=== PATIENT | female | born 1960 | race Asian ===

== ENCOUNTER 2016-05-06 11:37 | Emergency (ER) | payer OTHER ==
[~2016-05-06] VITALS: Ht 160 cm; Wt 56.7 kg
[2016-05-06 11:38] VITALS: BP 137/81
[2016-05-06] MEDS ORDERED: ASPI81TA85 PO (11:51)
[2016-05-06] MEDS ORDERED: AMLO25TA PO (11:51)
[2016-05-06] MEDS ORDERED: CIPROFLOXACIN 0.3% OPHTH SOLN 2.5ML OU ONE (12:30)
[2016-05-06] MEDS ORDERED: AUGMENTIN 875 MG TAB PO ONE (12:30)
[2016-05-06] MEDS ORDERED: AUGM875T27 PO (12:35)
[2016-05-06] MEDS ORDERED: CIPR0.3S OU (12:35)
== END 2016-05-06 12:46 | disposition home or self-care (01) ==
LOC: M ED 12:12
DX: H10.33 Unspecified acute conjunctivitis, bilateral (principal); L03.213 Periorbital cellulitis; I10 Essential (primary) hypertension; Z79.82 Long term (current) use of aspirin

== ENCOUNTER → 2016-08-27 | Outpatient (CLI) | payer OTHER ==
[~2016-08-27] VITALS: Ht 160 cm; Wt 49.9 kg
[~2016-08-27] MED LIST: AMLO25TA PO; AMLO5TAB2 PO; ASPI81TA85 PO; AUGM875T28 PO; CIPR0.3S OU; LIDOCAINE 2% INJ 100 MG/5 ML SDV (FOR ANES.) As Ordered ONE; NAPR500T3 PO; NS 1,000 ML IV ONE; PROPOFOL 200 MG/20 ML VIAL As Ordered ONE
--- NOTE | 2016-08-27 09:54 | ROOR ---
Patient Name: Mona Negrete Procedure Date: 08/27/2016 9:24 AM Date of : 1960 Age: 56 Room: [facility] Gender: Female Note Status: Finalized Procedure: Total Colonoscopy to Cecum + Bx. To r/o Microscopic Colitis Indications: Clinically significant diarrhea of unexplained origin Providers: Titus Ham MD Referring MD: ETHEL DAVENPORT MD Requesting Provider: Medicines: Monitored Anesthesia Care Complications: No immediate complications. Procedure: Pre-Anesthesia Assessment: - The heart rate, respiratory rate, oxygen saturations, blood pressure, adequacy of pulmonary ventilation, and response to care were monitored throughout the procedure. The Colonoscope was introduced through the anus and advanced to the cecum, identified by appendiceal orifice and ileocecal valve. The colonoscopy was performed without difficulty. The patient tolerated the procedure well. The quality of the bowel preparation was excellent. Findings: The perianal and digital rectal examinations were normal. Non-bleeding internal hemorrhoids were found during retroflexion. The hemorrhoids were small and Grade I (internal hemorrhoids that do not prolapse). No other significant abnormalities were identified in a careful examination of the remainder of the colon. Biopsies for histology were taken with a cold forceps from the ascending colon, transverse colon and descending colon for evaluation of microscopic colitis. The exam was otherwise without abnormality on direct and retroflexion views. Impression: - Non-bleeding internal hemorrhoids. - The examination was otherwise normal on direct and retroflexion views. - Biopsies were taken with a cold forceps from the ascending colon, transverse colon and descending colon for evaluation of microscopic colitis. - The exam was otherwise normal to the cecum. Recommendation: - Patient has a contact number available for emergencies. The signs and symptoms of potential delayed complications were discussed with the patient. Return to normal activities tomorrow. Written discharge instructions were provided to the patient. - High fiber diet. - Discharge patient to home. - Continue present medications. - Await pathology results. - Telephone GI clinic for pathology results in 1 week. - Repeat colonoscopy in 10 years for screening purposes. - Return to referring physician. - The findings and recommendations were discussed with the patient's family. - Check Portal Online for Path Results.([email or web address] - The findings and recommendations were discussed with the patient's family. Titus Ham MD Titus Ham MD 08/27/2016 9:53:46 AM This report has been signed electronically. Number of Addenda: 0 Note Initiated On: 08/27/2016 9:24 AM Estimated Blood Loss: Estimated blood loss: none.
--- NOTE | 2016-08-27 09:59 | ROOR ---
Patient Name: Mona Negrete Procedure Date: 08/27/2016 9:23 AM Date of : 1960 Age: 56 Room: [facility] Gender: Female Note Status: Finalized Procedure: Upper GI endoscopy + Small bowel bx.+ Biopsies for Helicobacter Pylori Indications: Diarrhea, Family history of gastric cancer Providers: Titus Ham MD Referring MD: ETHEL DAVENPORT MD Requesting Provider: Medicines: Monitored Anesthesia Care Complications: No immediate complications. Procedure: Pre-Anesthesia Assessment: - The heart rate, respiratory rate, oxygen saturations, blood pressure, adequacy of pulmonary ventilation, and response to care were monitored throughout the procedure. The Endoscope was introduced through the mouth, and advanced to the second part of duodenum. The upper GI endoscopy was accomplished without difficulty. The patient tolerated the procedure well. Findings: The Z-line was regular and was found 40 cm from the incisors. No other significant abnormalities were identified in a careful examination of the stomach. The exam of the duodenum was otherwise normal. Biopsies for histology were taken with a cold forceps in the first portion of the duodenum for evaluation of celiac disease. The exam was otherwise without abnormality. Diffuse mild inflammation characterized by erosions, erythema and aphthous ulcerations was found on the greater curvature of the stomach. Impression: - Z-line regular, 40 cm from the incisors. - The examination was otherwise normal. - Acute gastritis. - Biopsies were taken with a cold forceps for evaluation of celiac disease. - The examination was otherwise normal. Recommendation: - Patient has a contact number available for emergencies. The signs and symptoms of potential delayed complications were discussed with the patient. Return to normal activities tomorrow. Written discharge instructions were provided to the patient. - High fiber diet. - Discharge patient to home. - Continue present medications. - Await pathology results. - Telephone GI clinic for pathology results in 1 week. - Return to referring physician. - The findings and recommendations were discussed with the patient's family. Titus Ham MD Titus Ham MD 08/27/2016 9:58:31 AM This report has been signed electronically. Number of Addenda: 0 Note Initiated On: 08/27/2016 9:23 AM Estimated Blood Loss: Estimated blood loss: none.
[2016-08-27 10:23] VITALS: BP 112/80
== END ==
LOC: M OPP 08:05
PROVIDERS: ATTEND Internal Medicine Gastroenterology
DX: R19.7 Diarrhea, unspecified (principal); K64.0 First degree hemorrhoids; Z80.0 Family history of malignant neoplasm of digestive organs; K29.00 Acute gastritis without bleeding; R12 Heartburn; I10 Essential (primary) hypertension; Z79.82 Long term (current) use of aspirin; Z79.899 Other long term (current) drug therapy

== ENCOUNTER → 2016-09-03 | Outpatient (CLI) | payer OTHER ==
[~2016-09-03] MED LIST changes: -LIDOCAINE 2% INJ 100 MG/5 ML SDV (FOR ANES.) As Ordered ONE; -NS 1,000 ML IV ONE; -PROPOFOL 200 MG/20 ML VIAL As Ordered ONE
--- NOTE | 2016-09-03 09:56 | REPMRS ---
Patient History The patient states she has not had a clinical breast exam in over a year. Family history of stomach cancer in mother. Implants in both breasts. Digital Mammo Screening Bilat: September 03, 2016 - Exam #: [id number] Bilateral CC and MLO view(s) were taken. Technologist: Chantel Kapadia, Technologist Prior study comparison: September 05, 2015, bilateral digital mammo screening bilat performed at [facility]. August 30, 2014, bilateral digital mammo screening bilat performed at [facility]. FINDINGS: The breast tissue is heterogeneously dense. This may lower the sensitivity of mammography. There is a fairly symmetric fibroglandular pattern in both breasts. There has been no interval development of masses, areas of architectural distortion or clusters of microcalcifications typical of malignancy. Bilateral breast implants appear intact. No significant changes when compared with prior studies. ASSESSMENT: BI-RADS/ACR category 2 mammogram. Benign finding(s). Recommendation Routine screening mammogram of both breasts in 1 year (for women over age 40). This mammogram was interpreted with the aid of an FDA-approved computer-aided dectection system. Electronically Signed By: Edmundo Billy MD 09/03/16 0955
== END ==
LOC: M RAD 09:03
PROVIDERS: ATTEND Physician Assistant
DX: Z12.31 Encounter for screening mammogram for malignant neoplasm of breast (principal); Z98.82 Breast implant status

== ENCOUNTER → 2017-09-09 | Outpatient (CLI) | payer OTHER | LOC: M RAD 07:57 | DX: Z12.31 Encounter for screening mammogram for malignant neoplasm of breast (principal) | CPT/HCPCS: 77067 ==

== ENCOUNTER → 2018-04-06 | Outpatient (CLI) | payer OTHER ==
[~2018-04-06] MED LIST changes: -AMLO5TAB2 PO; +AMLO5TAB6 PO; +NAPR-885 PO; -NAPR500T3 PO
--- NOTE | 2018-04-07 09:54 | DEXA ---
AP SPINE L1 - L4 0.970 -1.8 -0.9 LT FEMUR TOTAL 0.735 -2.2 1.5 LT NECK RT FEMUR TOTAL 0.750 -2.0 -1.4 RT NECK TOTAL BODY TOTAL OTHER COMMENTS: There is low bone density of the spine and hips. FOLLOW-UP: Recommendation for the next bone density exam: 2 years. JAMESON
== END ==
LOC: M WHC 11:38
PROVIDERS: ATTEND Physician Assistant
DX: M85.89 Other specified disorders of bone density and structure, multiple sites (principal); E55.9 Vitamin D deficiency, unspecified

== ENCOUNTER → 2018-04-26 | Outpatient (CLI) | payer OTHER ==
--- NOTE | 2018-05-17 14:06 | REP ---
DIAGNOSTIC MAMMOGRAM, LEFT BREAST WITH LEFT BREAST ULTRASOUND: Left breast mammogram is performed in the MLO and CC projections with routine views as well as implant displaced views. There is a left breast implant in place. The patient had recent MRI of the left shoulder which showed prominent axillary lymph node. This was performed 04/08/2018. The breast implant is grossly intact. There is moderately dense fibroglandular tissue in the left breast which appears unchanged compared to multiple prior exams, most recently 09/09/2017. No new mass is seen. No clustered microcalcifications are seen. No abnormality is seen in the visualized left axillary region mammographically. Real-time sonographic evaluation of the left axillary region performed. A lymph node demonstrates a fatty hilum with normal appearing morphology, measuring 2.0 x 0.7 x 0.7 cm. Short axis dimension is within normal limits. IMPRESSION: ACR 2 benign. Moderately dense breast parenchyma. No mass or clustered microcalcifications. By ultrasound in the left axilla, there is a lymph node which appears morphologically within normal limits with a short axis dimension of 7 mm. There is fatty hilum. This does not appear to be suspicious. The patient is due for a bilateral mammogram August 2018. This mammogram was interpreted with the aid of an FDA-approved computer-aided detection system. The patient states that she or he has not had a clinical breast exam in over a year. Patient letter M2. Lupe lifetime risk of breast cancer 8.1%. Electronically Signed by Edmundo Billy MD 05/17/2018 02:49 P
== END ==
LOC: M RAD 13:50
PROVIDERS: ATTEND Internal Medicine
DX: R59.0 Localized enlarged lymph nodes (principal); R92.2 Inconclusive mammogram

== ENCOUNTER → 2018-09-10 | Outpatient (CLI) | payer OTHER ==
--- NOTE | 2018-09-10 11:35 | REPMRS ---
Patient History The patient states she had a clinical breast exam in Feb, 2018. Family history of unknown cancer in mother. Implants in both breasts. Digital Mammo Screening Bilat: September 10, 2018 - Exam #: [id number] Bilateral CC and MLO view(s) were taken. Technologist: Donya Cardenas, Technologist Prior study comparison: April 26, 2018, left breast digital mammo diagnostic unilateral performed at [facility]. September 09, 2017, bilateral digital mammo screening bilat performed at [facility]. August 05, 2011, bilateral digital mammo screening bilat performed at [facility]. July 30, 2010, bilateral digital mammo screening bilat performed at [facility]. FINDINGS: The breast tissue is heterogeneously dense. This may lower the sensitivity of mammography. The visualized implant margins are smooth. Breast parenchymal density pattern is essentially symmetric. No dominant mass, grouped microcalcification, or architectural distortion is evident on either side. 3-D tomosynthesis shows no additional findings. No significant changes when compared with prior studies. Assessment: BI-RADS/ACR category 2 mammogram. Benign Findings. Recommendation Routine screening mammogram of both breasts in 1 year (for women over age 40). This patient's Lifetime Breast Cancer RIsk is estimated at 8.0 %. This mammogram was interpreted with the aid of an FDA-approved computer-aided dectection system. Electronically Signed By: Nader Contreras MD 09/10/18 [id number]
== END ==
LOC: M RAD 09:37
PROVIDERS: ATTEND Family Medicine
DX: Z12.31 Encounter for screening mammogram for malignant neoplasm of breast (principal); Z80.9 Family history of malignant neoplasm, unspecified; Z98.82 Breast implant status

== ENCOUNTER → 2019-12-08 | Outpatient (CLI) | payer OTHER ==
[~2019-12-08] MED LIST changes: +AMLO1TAB24 PO; -AMLO5TAB6 PO; -ASPI81TA85 PO; +ASPI81TA86 PO; -CIPR0.3S OU; +CIPR0.3S6 OU
--- NOTE | 2019-12-09 08:05 | REPMRS ---
Patient History Family history of unknown cancer in mother. Implants in both breasts. Digital Woman Screen Mammo: December 08, 2019 - Exam #: [id number] Bilateral CC and MLO view(s) were taken. Technologist: Chantel Kapadia, Technologist Prior study comparison: September 10, 2018, bilateral digital mammo screening bilat, performed at [facility]. September 09, 2017, bilateral digital mammo screening bilat, performed at [facility]. August 05, 2011, bilateral digital mammo screening bilat, performed at [facility]. FINDINGS: The breast tissue is extremely dense which could obscure a lesion on mammography. The visualized implant margins are smooth. Breast parenchymal density pattern is essentially symmetric. No dominant mass, grouped microcalcification, or architectural distortion is evident on either side. 3-D tomosynthesis shows no additional findings. No significant changes when compared with prior studies. Assessment: BI-RADS/ACR category 2 mammogram. Benign Findings. Recommendation Routine screening mammogram of both breasts in 1 year (for women over age 40). This patient's Lifetime Breast Cancer RIsk is estimated at 7.8 %. This mammogram was interpreted with the aid of an FDA-approved computer-aided dectection system. Electronically Signed By: Nader Contreras MD 12/09/19 0804
== END ==
LOC: M WHC 13:52
PROVIDERS: ATTEND Nurse Practitioner Primary Care
DX: Z12.31 Encounter for screening mammogram for malignant neoplasm of breast (principal); Z80.9 Family history of malignant neoplasm, unspecified; Z98.82 Breast implant status

== ENCOUNTER 2020-04-04 06:55 | Day surgery (SDC) | payer OTHER ==
[~2020-04-04] VITALS: Ht 134.6 cm; Wt 50.8 kg
[~2020-04-04 06:55] MED LIST changes: +ASPI81CH33 PO; +DUPI300I SC
[2020-04-04] MEDS ORDERED: NS 1,000 ML IV ONE (07:00)
--- OUTSIDE RECORDS SUMMARY | 2020-04-04 07:01 | CCD | Continuity of Care Document ---
Author Author Mona HAM M.D. Organization Unknown Address [address] [place] [id number] Phone [phone] Care Team Providers Care Yarn Weight And Strength Tester Name Role Phone Iron Conrad MD AUTRahul Unavailable Problems Active Problems Provider Date Gastroesophageal reflux disease Titus Ham M.D. Ons et: 01/26/2020 Screening for malignant neoplasm of colon Titus reynoso M.D. Onset: 07/29/2016 Social History Type Date Description Comments Sex Unknown ETOH Use Denies alcohol use Tobacco Use Start: Unknown Patient has never smoked Allergies, Adverse Reactions, Alerts Description No Known Drug Allergies Medications Active Medications SIG Qnty Indications Ordering Provide r Date Suprep Bowel Prep Kit 17.5-3.13-1.6GM/177ML Solution use as directed 354ml Titus Ham M.D. 01/26/[address] Unknown Amlodipine Besylate 5mg Tablets Unknown Prempro 0.3-1.5mg Tablets Lisa Mayers M.D. Triamcinolone Acetonide 0.1% Ointm ent as directed Unknown Butalbital/Acetaminophen/Caffeine 50-325-40mg Tablets Unknown Vitamin B-2 100mg Tablets Unknown Dupixent 300mg/2ML Soln Prefill Syringe Crys Wayne Calcium 500 + D [id number] Tablets Unknown Multiple Vitamin Tablets Unknown Collagen Ultra Capsules Unknown Immunizations Description No Information Available Vital Signs Date Vital Result Comment 01/26/2020 1:46pm Height 64 inches 5'4" Weight 114.00 lb BP Systolic 112 mmHg BP Diastolic 73 mmHg Heart Rate 81 /min BMI (Body Mass Index) 19.6 kg/m2 Weight 51.710 kg Body Temperature 97.3 F 07/29/2016 1:53pm Height 54 inches 4'6" Weight 109.00 lb BP Systolic 122 mmHg BP Diastolic 83 mmHg Heart Rate 63 /min BMI (Body Mass Index) 26.3 kg/m2 Weight 49.442 kg Results Description No Information Available Procedures Description No Information Available Medical Devices Description No Information Available Encounters Type Date Location Provider Dx Diagnosis Office Visit 01/26/2020 1:30p Main Office Titus Ham M.D. K 59.1 Functional diarrhea Z80.0 Family history of malignant neoplasm of digestive organs Assessments Date Code Description Provider 01/26/2020 K59.1 Functional diarrhea Titus arias M.D. 01/26/2020 Z80.0 Family history of malignant neop lasm of gastrointestinal tract Titus Ham M.D. Plan of Treatment Future Appointment(s):* 04/04/2020 8:00 am - Titus Ham M.D. at Main Office 01/26/2020 - Titus Ham M.D.* K59.1 Functional diarrhea* Comments:* 59 yo wf who presents for a screening colonoscopy + egd for a h/o heartburn. No c/o abdominal pain, weight loss, change in bowel habits, or rectal bleeding. N o family h/o colon cancer. No h/o chest pain, or sob. She also has a chronic h/o heartburn. Plan:1. Colonoscopy + egd.2. Informed consent. * Z80.0 Family history of malignant neoplasm of gastrointestinal tract* Comments:* Plan :1.Setup colonoscopy.2. Informed consent given. Functional Status Description No Information Available Mental Status Description No Information Available Referrals Refer to Reason for Referral Status Appt Date Titus Ham M.D. Scheduled [phone] [place] [address] [phone]
--- OUTSIDE RECORDS SUMMARY | 2020-04-04 07:01 | CCD ---
Author Author [facility] Organization [facility] Address Unknown Phone Unavailable Care Team Providers Care Pharmacy Technician Name Role Phone Andie Ham MD Unavailable Unavailable Andie Ham MD Unavailable Unavailable Andie Ham MD Unavailable Unavailable Andie Ham MD Unavailable Unavailable Andie Ham MD Unavailable Unavailable Andie Ham MD Unavailable Unavailable Andie Ham MD Unavailable Unavailable Andie Ham MD Unavailable Unavailable Andie Ham MD Unavailable Unavailable Andie Ham MD Unavailable Unavailable Andie Ham MD Unavailable Unavailable Andie Ham MD Unavailable Unavailable Andie Ham MD Unavailable Unavailable Andie Ham MD Unavailable Unavailable Andie Ham MD Unavailable Unavailable Andie Ham MD Unavailable Unavailable Andie Ham MD Unavailable Unavailable Andie Ham MD Unavailable Unavailable Andie Ham MD Unavailable Unavailable Andie Ham MD Unavailable Unavailable Andie Ham MD Unavailable Unavailable Andie Ham MD Unavailable Unavailable Andie Ham MD Unavailable Unavailable Andie Ham MD Unavailable Unavailable Andie Ham MD Unavailable Unavailable Andie Ham MD Unavailable Unavailable Andie Ham MD Unavailable Unavailable Andie Ham MD Unavailable Unavailable Andie Ham MD Unavailable Unavailable Andie Ham MD Unavailable Unavailable Andie Ham MD Unavailable Unavailable Andie Ham MD Unavailable Unavailable Andie Ham MD Unavailable Unavailable Jitendra, S Titus MD Unavailable Unavailable Jitendra, S Titus MD Unavailable Unavailable Jitendra, S Titus MD Unavailable Unavailable Jitendra, S Titus MD Unavailable Unavailable Jitendra, S Titus MD Unavailable Unavailable Jitendra, S Titus MD Unavailable Unavailable Jitendra, S Titus MD Unavailable Unavailable Jitendra, S Titus MD Unavailable Unavailable Jitendra, S Titus MD Unavailable Unavailable Jitendra, S Titus MD Unavailable Unavailable Jitendra, S Titus MD Unavailable Unavailable Jitendra, S Titus MD Unavailable Unavailable Jitendra, S Titus MD Unavailable Unavailable Jitendra, S Titus MD Unavailable Unavailable Jitendra, S Titus MD Unavailable Unavailable Jitendra, S Titus MD Unavailable Unavailable Re-disclosure Warning The records that you are about to access may contain information from federally-assisted alcohol or drug abuse programs. If such information is present, then the following federally mandated warning applies: This information has been disclosed to you from records protected by federal confidentiality rules (42 CFR part 2). The federal rules prohibit you from making any further disclosure of this information unless further disclosure is expressly permitted by the written consent of the person to whom it pertains or as otherwise permitted by 42 CFR part 2. A general authorization for the release of medical or other information is NOT sufficient for this purpose. The Federal rules restrict any use of the information to criminally investigate or prosecute any alcohol or drug abuse patient.The records that you are about to access may contain highly sensitive health information, the redisclosure of which is protected by Article 27-F of the [facility] Public Health law. If you continue you may have access to information: Regarding HIV / AIDS; Provided by facilities licensed or operated by the [facility] Office of Mental Health; or Provided by the [facility] Office for People With Developmental Disabilities. If such information is present, then the following [facility] mandated warning applies: This information has been disclosed to you from confidential records which are protected by state law. State law prohibits you from making any further disclosure of this information without the specific written consent of the person to whom it pertains, or as otherwise permitted by law. Any unauthorized further disclosure in violation of state law may result in a fine or chcf sentence or both. A general authorization for the release of medical or other information is NOT sufficient authorization for further disc losure. Family History Family Member Name Family Member Gender Family Member Status Date o f Status Description Data Source(s) Unknown Female Problem [facility] ([facility]) Unknown Male Problem [facility] ([facility]) Unknown Unknown Problem [facility] ([facility]) GASTRIC Unknown Female Problem [facility] ([facility]) Encounters Encounter Providers Location Date Indications Data Source(s ) Outpatient Attender: Titus Ham MD Main Office 01/26/2020 12:30:00 PM EST [facility] ([facility]) Medications Medication Brand Name Start Date Product Form Dose Route Admi nistrative Instructions Pharmacy Instructions Status Indications Reaction Description Data Source(s) Suprep Bowel Prep Kit Suprep Bowel Prep Kit 01/26/2020 12:00:00 AM EST active [facility] ([facility]) Insurance Providers Payer name Policy type / Coverage type Policy ID Covered alliance party ID Covered alliance party's relationship to [place] Policy [place] Plan Information EAST HUMANA [id number] 2 [id number] HUMANA [place]AST [place] [id number] S [id number] U Self [id number] East Humana Commercial [id number] Family Dependent [id number] EAST HUMANA CO UNAVAILABLE 01 UNAVAILABLE EAST HUMANA - PHYSICIAN CO UNAVAILABLE 01 UNAVAILABLE [place] [employer] Commercial [id number] Family Dependent [id number] [facility] Federal Service Medigap Part B [id number] Family De pendent [id number] East Referrals Commercial [id number] Family Dependent [id number] PGBA [facility] [id number] 2 [id number] PGBA [facility] [id number] 2 [id number] PGBA [facility] [id number] [id number] Region 1 Prime Commercial Family Dependent [id number] PGBA [facility] [id number] PGBA [facility] [id number] 2 [id number] [employer] [facility] Health Maintenance Organization (HMO) Family Dependent PGBA [place] O [id number] P [id number] PGBA [facility] [id number] HU2 [employer]ALTH[employer]/ AD P [id number] P [id number] Problems, Conditions, and Diagnoses Code Display Name Description Problem Type Effective Dates Data Source(s) 347311030 Gastroesophageal reflux disease Gastroesophageal reflux disease Problem 01/26/2020 12:00:00 AM EST [facility]) Results ID Date Data Source [id number] 03/30/2020 09:53:00 AM EST [facility] Name Value Range Interpretation Code Description Data Cristina rce(s) Supporting Document(s) SARS coronavirus 2 RNA Not Detected [facility] [place] This lab was ordered by [facility] Laboratory and reported by [facility]. Procedure Vital Signs ID Date Data Source UNK Name Value Range Interpretation Code Description Data Source(s) Body temperature 97.3 [degF] 97.3 [degF] [facility] ([facility]) Body weight 51.710 kg 51.710 kg [facility]) Body mass index (BMI) [Ratio] 19.6 kg/m2 19.6 k g/m2 [facility] ([facility]) Heart rate 81 /min 81 /min [facility] ([facility]) Diastolic blood pressure 73 mm[Hg] 73 mm[Hg] [facility] ([facility]) Systolic blood pressure 112 mm[Hg] 112 mm[Hg] M EDENT ([facility]) Body weight 114.00 [lb_av] 114.00 [lb_av] MEDEN T ([facility]) Body height 64 [in_i] 64 [in_i] [facility] 5'4"
[2020-04-04] MEDS ORDERED: LIDOCAINE 2% 100MG/5ML SDV (FOR ANES.) As Ordered ONE (07:14)
[2020-04-04] MEDS ORDERED: propofoL 200 MG/20 ML VIAL As Ordered ONE (07:14)
--- NOTE | 2020-04-04 08:20 | ROOR ---
Patient Name: Mona Negrete Procedure Date: 04/04/2020 8:00 AM Date of : 1960 Age: 59 Room: [facility] Gender: Female Note Status: Finalized Procedure: Upper Endoscopy + Biopsies Indications: Epigastric abdominal pain, Heartburn, Family history of gastric cancer Providers: Titus Ham MD Referring MD: Titus Ham MD Requesting Provider: Medicines: Monitored Anesthesia Care Complications: No immediate complications. Procedure: Pre-Anesthesia Assessment: - The heart rate, respiratory rate, oxygen saturations, blood pressure, adequacy of pulmonary ventilation, and response to care were monitored throughout the procedure. The Endoscope was introduced through the mouth, and advanced to the second part of duodenum. The upper GI endoscopy was accomplished without difficulty. The patient tolerated the procedure well. Findings: The Z-line was regular and was found 40 cm from the incisors. Multiple biopsies were obtained with cold forceps for evaluation to rule out Fernández's Esophagus randomly at the gastroesophageal junction. No other significant abnormalities were identified in a careful examination of the stomach. Biopsies were taken with a cold forceps in the gastric antrum for Helicobacter pylori testing. The exam of the duodenum was otherwise normal. Impression: - Z-line regular, 40 cm from the incisors. - Multiple biopsies were obtained at the gastroesophageal junction. - Biopsies were taken with a cold forceps for Helicobacter pylori testing. - The examination was otherwise normal. Recommendation: - Patient has a contact number available for emergencies. The signs and symptoms of potential delayed complications were discussed with the patient. Return to normal activities tomorrow. Written discharge instructions were provided to the patient. - High fiber diet. - Discharge patient to home. - Follow an antireflux regimen. - Continue present medications. - Await pathology results. - Telephone GI clinic for pathology results in 1 week. - Return to referring physician. - The findings and recommendations were discussed with the patient. Procedure Code(s): --- Professional --- 67127, Esophagogastroduodenoscopy, flexible, transoral; with biopsy, single or multiple Diagnosis Code(s): --- Professional --- R10.13, Epigastric pain R12, Heartburn Z80.0, Family history of malignant neoplasm of digestive organs CPT copyright 2019 [employer]. All rights reserved. 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 Titus Ham MD Titus Ham MD 04/04/2020 8:19:53 AM Electronically signed by Titus Ham MD Number of Addenda: 0 Note Initiated On: 04/04/2020 8:00 AM Estimated Blood Loss: Estimated blood loss: none.
--- NOTE | 2020-04-04 08:33 | ROOR ---
Patient Name: Mona Negrete Procedure Date: 04/04/2020 8:02 AM Date of : 1960 Age: 59 Room: [facility] Gender: Female Note Status: Finalized Procedure: Total Colonoscopy to Cecum Indications: Abdominal pain in the left lower quadrant Providers: Titus Ham MD Referring MD: Titus Ham MD Requesting Provider: Medicines: Monitored Anesthesia Care Complications: No immediate complications. Procedure: Pre-Anesthesia Assessment: - The heart rate, respiratory rate, oxygen saturations, blood pressure, adequacy of pulmonary ventilation, and response to care were monitored throughout the procedure. The Colonoscope was introduced through the anus and advanced to the cecum, identified by appendiceal orifice and ileocecal valve. The colonoscopy was performed without difficulty. The patient tolerated the procedure well. The quality of the bowel preparation was excellent. Findings: The perianal and digital rectal examinations were normal. Non-bleeding internal hemorrhoids were found during retroflexion. The hemorrhoids were small and Grade I (internal hemorrhoids that do not prolapse). No other significant abnormalities were identified in a careful examination of the remainder of the colon. The exam was otherwise without abnormality on direct and retroflexion views. Impression: - Non-bleeding internal hemorrhoids. - The examination was otherwise normal on direct and retroflexion views. - No specimens collected. - The exam was otherwise normal to the cecum. Recommendation: - Patient has a contact number available for emergencies. The signs and symptoms of potential delayed complications were discussed with the patient. Return to normal activities tomorrow. Written discharge instructions were provided to the patient. - High fiber diet. - Discharge patient to home. - Continue present medications. - Repeat colonoscopy in 10 years for screening purposes. - Return to referring physician. - The findings and recommendations were discussed with the patient. Procedure Code(s): --- Professional --- 98630, Colonoscopy, flexible; diagnostic, including collection of specimen(s) by brushing or washing, when performed (separate procedure) Diagnosis Code(s): --- Professional --- K64.0, First degree hemorrhoids R10.32, Left lower quadrant pain CPT copyright 2019 [employer]. All rights reserved. The codes documented in this report are preliminary and upon pvc loader review may be revised to meet current compliance requirements. Titus Ham MD Titus Ham MD 04/04/2020 8:33:14 AM Electronically signed by Titus Ham MD Number of Addenda: 0 Note Initiated On: 04/04/2020 8:02 AM Estimated Blood Loss: Estimated blood loss: none.
[2020-04-04 09:00] VITALS: BP 138/68
== END 2020-04-04 09:13 | disposition home or self-care (01) ==
LOC: M OPP 06:55
PROVIDERS: ATTEND Internal Medicine Gastroenterology
DX: R10.32 Left lower quadrant pain (principal); R10.13 Epigastric pain; Z80.0 Family history of malignant neoplasm of digestive organs; K64.0 First degree hemorrhoids; D13.1 Benign neoplasm of stomach; I10 Essential (primary) hypertension; L30.9 Dermatitis, unspecified; Z79.82 Long term (current) use of aspirin; Z79.899 Other long term (current) drug therapy

== ENCOUNTER → 2020-12-27 | Outpatient (CLI) | payer OTHER ==
--- NOTE | 2020-12-27 13:19 | REPMRS ---
Patient History The patient states she has not had a clinical breast exam in over a year. Patient is postmenopausal. Family history of unknown cancer in mother. Implants in both breasts. Patient states no breast complaints today. Patient has signed MRS History Sheet. Digital Woman Screen Mammo: December 27, 2020 - Exam #: [id number] Bilateral CC and MLO view(s) were taken. Technologist: Donya Cardenas, Technologist Prior study comparison: December 08, 2019, bilateral digital woman screen mammo performed at [facility]. September 10, 2018, bilateral digital mammo screening bilat, performed at [facility]. FINDINGS: The breast tissue is extremely dense which could obscure a lesion on mammography. Screening. Digital screening (2D) mammography was performed bilaterally in the CC and MLO projections. Additionally, breast tomosynthesis (3D mammography) was performed bilaterally in the CC and MLO projections. Todays exam was compared to the prior exam/exams.Both Candice and non-Candice views were obtained. By history, the patient has no complaints of a palpable breast abnormality or other significant breast complaints. The breasts are unchanged in size and shape. Once again, dense heterogenous fibroglandular elements are seen bilaterally in a stable appearing pattern but to such a degree that the sensitivity of the mammogram in detecting cancer is decreased.There are no eva-soft tissue densities or spiculated masses. There is no internal architectural distortion. There are no suspicious eva-calcific clusters. Skin thickening or nipple retraction is not present. IMPRESSION: BI-RADS Category 2- Benign Findings. There is no evidence of malignant alteration of the breasts. Followup examination recommended in one year. The Volpara volumetric breast density category is D, the breasts are extremely dense which lowers the sensitivity of mammography. This mammogram was read with the assistance of Kraken,an FDA approved computer aided detection system for mammography. The lifetime Tyrer-Cuzick score is 5.6 % Due to the density of the breasts or Tyrer Cuzick score of 20% or greater, MRI/whole breast screening ultrasound is warranted. Negative x-ray reports should not delay surgical consultation if a dominant or clinically suspicious mass is present. Not all breast cancers can be identified by mammography. Therefore, we recommend that you continue to perform regular breast self-examination and physical examination and then promptly contact your physician of any concerns or changes. Adenosis and dense breasts may obscure an underlying neoplasm. Assessment: BI-RADS/ACR category 2 mammogram. Benign Findings. Recommendation Routine screening mammogram of both breasts in 1 year. Electronically Signed By: Orville Telles DO 12/27/20 1748
== END ==
LOC: M WHC 12:12
PROVIDERS: ATTEND Student in an Organized Health Care Education/Training Program
DX: Z12.31 Encounter for screening mammogram for malignant neoplasm of breast (principal)

== ENCOUNTER → 2022-01-02 | Outpatient (CLI) | payer OTHER | LOC: M WHC 13:17 | PROVIDERS: ATTEND Student in an Organized Health Care Education/Training Program | DX: Z12.31 Encounter for screening mammogram for malignant neoplasm of breast (principal) ==

== ENCOUNTER → 2022-02-03 | Outpatient (CLI) | payer OTHER | LOC: M WHC 08:51 | PROVIDERS: ATTEND Student in an Organized Health Care Education/Training Program | DX: Z13.820 Encounter for screening for osteoporosis (principal); Z79.52 Long term (current) use of systemic steroids; M85.89 Other specified disorders of bone density and structure, multiple sites ==

== ENCOUNTER → 2023-01-19 | Outpatient (CLI) | payer OTHER ==
[~2023-01-19] MED LIST changes: +CIPR0.3S37 OU; -CIPR0.3S6 OU
== END ==
LOC: M WHC 10:54
PROVIDERS: ATTEND Student in an Organized Health Care Education/Training Program
DX: Z12.31 Encounter for screening mammogram for malignant neoplasm of breast (principal)

== ENCOUNTER → 2024-02-05 | Outpatient (CLI) | payer OTHER | LOC: M WHC 10:54 | PROVIDERS: ATTEND Nurse Practitioner Family | DX: Z12.31 Encounter for screening mammogram for malignant neoplasm of breast (principal); M81.0 Age-related osteoporosis without current pathological fracture ==

== ENCOUNTER 2024-12-19 08:54 | Day surgery (SDC) | payer OTHER ==
[~2024-12-19] VITALS: Ht 162.6 cm; Wt 48.2 kg
[2024-12-19] MEDS ORDERED: LIDOCAINE 2% 100 MG/5 ML SDV (FOR ANES.) As Ordered ONE (09:59)
[2024-12-19 10:22] VITALS: TEMP 97.4
[2024-12-19 10:57] VITALS: BP 106/62; O2SAT 97
== END 2024-12-19 11:15 | disposition home or self-care (01) ==
LOC: M OPP 08:54
PROVIDERS: ATTEND Internal Medicine Gastroenterology
DX: R10.31 Right lower quadrant pain (principal); Z80.0 Family history of malignant neoplasm of digestive organs; Z79.82 Long term (current) use of aspirin; Z79.899 Other long term (current) drug therapy
CPT/HCPCS: 43239; 45378; 88305; J3010

== ENCOUNTER → 2025-02-20 | Outpatient (CLI) | payer OTHER | LOC: M WHC 11:02 | PROVIDERS: ATTEND General Practice | DX: Z12.31 Encounter for screening mammogram for malignant neoplasm of breast (principal); R92.333 Mammographic heterogeneous density, bilateral breasts ==